=== PATIENT | female | born 1965 | race African-American/Black ===

== ENCOUNTER 2018-04-14 12:57 | Emergency (ER) | payer BC ==
--- NOTE | 2018-04-14 14:29 | RAD ---
RIGHT KNEE FOUR VIEW 04/14/18 HISTORY: Pain. COMPARISON: Knee radiographs 02/04/18. FINDINGS: There is no acute fracture or malalignment. No significant joint effusion. Mild enthesopathic changes of the quadriceps tendon insertion involving the patella. IMPRESSION: No acute abnormality. POS: [facility]
--- NOTE | 2018-04-14 15:44 | ULT ---
RIGHT LOWER EXTREMITY VENOUS DUPLEX ULTRASOUND INCLUDING COLOR AND SPECTRAL DOPPLER IMAGING: History: Right hip pain, right knee swelling and edema. FINDINGS: Exam performed from groin to ankle including visualized greater saphenous, common femoral, superficia l femoral, profunda femoral, popliteal, trifurcation and posterior tibial vein regions. There is phas ic flow at all levels with normal compressibility and normal augmentation. No intraluminal thrombus. IMPRESSION: No evidence for deep venous thrombosis. POS: C
== END 2018-04-14 16:08 | disposition home or self-care (01) ==
LOC: ERS 12:57
DX: M25.461 Effusion, right knee (principal); D50.0 Iron deficiency anemia secondary to blood loss (chronic); F17.210 Nicotine dependence, cigarettes, uncomplicated